=== PATIENT | female | born 1960 | race Hispanic/Latino ===

== ENCOUNTER 2017-04-27 20:26 | Inpatient (IN) | payer OTHER ==
[~2017-04-27] VITALS: Ht 165.1 cm; Wt 85.4 kg
[2017-04-27] MEDS ORDERED: MEGARED OMEGA-1 EAC2 PO (22:18)
[2017-04-27 23:10] LABS: HEMATOCRIT 36.9 % (36.0-46.0); MCHC 33.9 G/DL (30.0-36.0); MCV 88.5 FL (83-99); MEAN PLAT.VOLUME 9.5 uM^3 (9.5-12.4); PLATELET COUNT 252 K/uL (156-360); RBC DIS.WIDTH-CV 11.9 % (11.8-14.6); RED BLOOD COUNT 4.17 M/uL (3.80-5.20); WHITE BLOOD COUNT 10.5 K/uL (4.1-10.2)
[2017-04-27 23:21] LABS: CHLORIDE 108 mEq/L (99-109); SODIUM 140 mEq/L (136-147)
[2017-04-27 23:23] LABS: GLUCOSE 114 mg/dL (70-99)
[2017-04-27 23:24] LABS: ANION GAP 9 MEQ/L (2-14)
[2017-04-27 23:27] LABS: GFR ESTIMATE (CALCULATED) > 59 mL/min/
[2017-04-27 23:28] LABS: UREA NITROGEN (BUN) 23 mg/dL (9-23)
[2017-04-28 03:23] VITALS: BP 111/68
[2017-04-28 07:04] VITALS: BP 105/78
[2017-04-28 10:30] VITALS: BP 150/78
[2017-04-28 12:53] LABS: POINT-OF-CARE METER ID UU14208750
[2017-04-28 16:26] VITALS: BP 112/66
[2017-04-28 19:30] VITALS: BP 118/75
[2017-04-28 23:27] VITALS: BP 103/58
[2017-04-29 03:35] VITALS: BP 97/63
[2017-04-29 07:00] VITALS: BP 110/73
[2017-04-29 08:12] LABS: HEMATOCRIT 35.4 % (36.0-46.0); MCV 90.5 FL (83-99)
[2017-04-29 11:15] VITALS: BP 126/68
[2017-04-29] MEDS ORDERED: ASPIRIN EC325 MG PO (12:25)
[2017-04-29] MEDS ORDERED: ENDOCET 5-3251 EACH PO (12:25)
== END 2017-04-29 17:31 | disposition home or self-care (01) | DRG 494 ==
LOC: TRA 20:26 → EDBD 20:26 → EME 20:26 → EDOF 04-28 00:47 → ENRESERV 04-28 00:59 → 2EASTP 04-28 02:59
PROVIDERS: Emergency Medicine; Orthopaedic Surgery
DX: S82.851A Displaced trimalleolar fracture of right lower leg, initial encounter for closed fracture (principal); W01.0XXA Fall on same level from slipping, tripping and stumbling without subsequent striking against object, initial encounter; Y93.H2 Activity, gardening and landscaping; Y92.007 Garden or yard of unspecified non-institutional (private) residence as the place of occurrence of the external cause; Z85.3 Personal history of malignant neoplasm of breast; Z79.810 Long term (current) use of selective estrogen receptor modulators (SERMs)
CPT/HCPCS: 71010; 73600; 76000; 80048; 82948; 85014; 85018; 85027; 93005; 99281; 99285; C1713; J0690; J1100; J1885; J2250; J2270; J2405; J3010; J7030; S0020